=== PATIENT | male | born 1975 | race Caucasian/White ===

== ENCOUNTER 2024-05-25 19:42 | Emergency (ER) | payer MEDICAID ==
[~2024-05-25] VITALS: Ht 175.3 cm; Wt 88.0 kg
[2024-05-25 19:49] VITALS: TEMP 98.3; O2SAT 98
[2024-05-25] MEDS ORDERED: PENICILLIN V POTASSIUM 250MG TABLET PO SCH (20:00)
[2024-05-25] MEDS: CLINDAMYCIN HCL 150MG CAPSULE PO SCH (20:48)
[2024-05-25 20:49] VITALS: BP 117/74; PULSE 110; RESP 14
[2024-05-25] MEDS: IBUPROFEN 600MG TABLET PO ONE (20:49)
[2024-05-25] MEDS ORDERED: IBUP-2029 MT (21:05)
[2024-05-25] MEDS ORDERED: CLIN-194 MT (21:05)
== END 2024-05-25 21:24 | disposition home or self-care (01) ==
LOC: ER 19:42
DX: J02.9 Acute pharyngitis, unspecified (principal); K04.7 Periapical abscess without sinus; Z88.0 Allergy status to penicillin
CPT/HCPCS: 99283